=== PATIENT | female | born 2000 | race Caucasian/White ===

== ENCOUNTER 2021-07-09 13:04 | Emergency (ER) | payer OTHER ==
[2021-07-09 13:10] VITALS: BP 125/88
[2021-07-09 14:03] LABS: BILIRUBIN,URINE NEGATIVE (NEGATIVE); GLUCOSE, URINE (UA) NEGATIVE (NEGATIVE); KETONES,URINE (UA) NEGATIVE (NEGATIVE); LEUKOCYTE ESTERASE, URINE NEGATIVE (NEGATIVE); NITRITE,URINE NEGATIVE (NEGATIVE); OCCULT BLOOD,URINE TRACE-INTA (NEGATIVE); PROTEIN,URINE NEGATIVE (NEGATIVE); UROBILINOGEN,URINE 0.2 (NORMAL) E.U./dL (NORMAL)
[2021-07-09 14:05] LABS: CLARITY,URINE CLEAR (CLEAR)
[2021-07-09 14:06] LABS: HCG UR QUAL NEGATIVE
--- NOTE | 2021-07-09 14:26 | ED Physician Documentation ---
PD HPI FEMALE - Stated complaint Stated Complaint: FEMALE - Chief complaint Chief Complaint: UTI - History obtained from History obtained from: Patient - History of Present Illness Timing - onset: Yesterday Timing - duration: Days (1) Timing - details: Abrupt onset, Still present Associated symptoms: Dysuria, Urinary frequency. No: Vaginal discharge, Genital sore/lesion Contributing factors: No: Exposed to STD Similar symptoms before: Diagnosis (similar to UTIs in the past.) Recently seen: Not recently seen Review of Systems Constitutional: denies: Fever, Chills GI: denies: Abdominal Pain, Nausea, Vomiting : reports: Dysuria, Frequency. denies: Discharge, Irregular menses Skin: denies: Rash, Lesions PD PAST MEDICAL HISTORY - Past Medical History Cardiovascular: None Respiratory: None Endocrine/Autoimmune: None - Present Medications Home Medications: Ambulatory Orders Medication Instructions Recorded Confirmed Phenazopyridine HCl [Pyridium] 100 mg PO TID PRN #15 tablet 07/09/21 cephALEXin [Keflex] 500 mg PO TID 5 Days #15 cap 07/09/21 - Allergies Allergies/Adverse Reactions: Allergies Allergy/AdvReac Type Severity Reaction Status Date / Time No Known Drug Allergies Allergy Verified 07/09/21 13:07 PD ED PE NORMAL - Vitals Vital signs reviewed: Yes - General General: Alert and oriented X 3, No acute distress, Well developed/nourished - Female Female : Deferred (will have pt self-obtain vaginal swabs. ) - Back Back: No CVA TTP - Derm Derm: Normal color, Warm and dry Results - Vitals Vitals: Vital Signs - 24 hr 07/09/21 13:07 Temperature 36.5 C Heart Rate 128 H Respiratory 16 Rate Blood Pressure 125/88 H O2 Saturation 98 Oxygen O2 Source Room air - Labs Labs: Laboratory Tests 07/09/21 07/09/21 07/09/21 13:49 14:55 14:55 Urine Color LT. YELLOW Urine Clarity CLEAR Urine pH 6.0 Ur Specific [place] <=1.005 Urine Protein NEGATIVE Urine Glucose (UA) NEGATIVE Urine Ketones NEGATIVE Urine Occult Blood TRACE-INTA Urine Nitrite NEGATIVE Urine Bilirubin NEGATIVE Urine Urobilinogen 0.2 (NORMAL) Ur Leukocyte Esterase NEGATIVE Ur Microscopic Review NOT INDICATED Urine Culture Comments NOT INDICATED Urine HCG, Qual NEGATIVE C. glabrata (PCR) NEGATIVE C. krusei (PCR) NEGATIVE Jeannie species DNA POSITIVE A Chlam trachomat DNA PCR POSITIVE A N.gonorrhoeae DNA (PCR) NEGATIVE T. vaginalis (PCR) NEGATIVE NEGATIVE Bact Vaginosis (PCR) NEGATIVE PD MEDICAL DECISION MAKING - ED course Complexity details: considered differential (symptoms c/w uti. No creams/lotions/etc that might have irritated. Denies vaginal discharge. UA is not very convincing for UTI. Consider vaginitis or interstitial cystitis. ), d/w patient Departure - Departure Disposition: 01 Home, Self Care Clinical Impression: Dysuria Condition: Stable Record reviewed to determine appropriate education?: Yes Instructions: ED Dysuria Uncertain Cause Follow-Up: RAJEEV MATOS ARNP [Primary Care Provider] - Prescriptions: cephALEXin [Keflex] 500 mg PO TID 5 Days #15 cap Phenazopyridine HCl [Pyridium] 100 mg PO TID PRN #15 tablet PRN Reason: Abdominal Pain Comments: Your urine test here today does not show obvious signs of infection. However your symptoms are consistent with bladder infection so we can start treating it that way with cephalexin and phenazopyridine. The vaginal swab tests will result in a day and will call you if there is any signs of vaginitis to account for your symptoms (such as yeast infection or such). Recheck if not improving well over the next few days. Discharge Date/Time: 07/09/21 15:07
[2021-07-09] MEDS ORDERED: PHENAZOPYRIDINE 100 MG TABLET PO STA (14:50)
[2021-07-09] MEDS ORDERED: cephALEXin 250 MG CAPSULE PO STA (14:50)
[2021-07-09 17:04] LABS: BACTERIAL VAGINOSIS DNA NEGATIVE (NEGATIVE); CANDIDA GLABRATA DNA NEGATIVE (NEGATIVE); CANDIDA GROUP DNA POSITIVE (NEGATIVE); CANDIDA KRUSEI DNA NEGATIVE (NEGATIVE); TRICHOMONAS VAGINALIS DNA NEGATIVE (NEGATIVE)
[2021-07-09 22:42] LABS: NEISSERIA GONORRHOEAE DNA NEGATIVE (NEGATIVE); TRICHOMONAS VAGINALIS DNA NEGATIVE (NEGATIVE)
[2021-07-09 22:46] LABS: CHLAMYDIA TRACHOMATIS DNA POSITIVE (NEGATIVE)
== END 2021-07-09 15:07 | disposition home or self-care (01) ==
LOC: ED 13:04
DX: B37.3 Candidiasis of vulva and vagina (principal); A56.02 Chlamydial vulvovaginitis
CPT/HCPCS: 81003; 81025; 87481; 87491; 87591; 87661; 87801; 99283; A9270; 81001; 87086

== ENCOUNTER 2021-09-28 18:25 | Emergency (ER) | payer OTHER ==
[2021-09-28 18:40] VITALS: BP 129/72
[2021-09-28] MEDS ORDERED: IBUPROFEN 600 MG TABLET PO STA (19:02)
--- NOTE | 2021-09-28 19:15 | ED Physician Documentation ---
History of Present Illness - Stated complaint Stated Complaint: BACK PAIN AFTER FALL - Chief complaint Chief Complaint: Trauma Ch/Bk - History obtained from History obtained from: Patient - History of Present Illness Timing: Today Pain level max: 5 Pain level now: 4 - Additonal information Additional information: 21-year-old female states that she tripped and fell down stairs yesterday while carrying a TV. Complains of left hand pain today. Worse with movement, better with rest. Also complains of mild low back pain. Worse with movement, better with rest. No loss of bowel or bladder control. Denies any possibility of . Review of Systems Constitutional: denies: Fever, Chills Respiratory: denies: Cough GI: denies: Nausea, Vomiting : denies: Dysuria, Frequency, Hesitancy, Now EGA Skin: denies: Rash Neurologic: denies: Focal weakness, Numbness, Seizure, Confused, Head injury, LOC PD PAST MEDICAL HISTORY - Past Medical History Cardiovascular: None Respiratory: None Endocrine/Autoimmune: None - Present Medications Home Medications: Ambulatory Orders Medication Instructions Recorded Confirmed Phenazopyridine HCl [Pyridium] 100 mg PO TID PRN #15 tablet 07/09/21 cephALEXin [Keflex] 500 mg PO TID 5 Days #15 cap 07/09/21 - Allergies Allergies/Adverse Reactions: Allergies Allergy/AdvReac Type Severity Reaction Status Date / Time No Known Drug Allergies Allergy Verified 09/28/21 18:40 PD ED PE NORMAL - Vitals Vital signs reviewed: Yes - General General: Alert and oriented X 3, No acute distress, Well developed/nourished - HEENT HEENT: Atraumatic, PERRL, Moist mucous membranes - Neck Neck: Supple, no meningeal sign, No bony TTP - Cardiac Cardiac: RRR, Strong equal pulses - Respiratory Respiratory: No respiratory distress, Clear bilaterally - Abdomen Abdomen: Soft, Non tender, Non distended - Back Back: No spinal TTP, Other (Small abrasion to the mid back. No spinal tenderness. No step-off or deformity.) - Derm Derm: Warm and dry - Extremities Extremities: Other (Normal bilateral lower extremity patellar and ankle jerk reflexes. Normal great toe extension bilaterally. no saddle anesthesia) - Neuro Neuro: Alert and oriented X 3 - Psych Psych: Normal mood, Normal affect - Free text exam Free text exam: Left hand - Bruising to the dorsum of the left hand, over the mid hand. Also has pain with range of motion of the left middle finger. Neurovascular intact. Tenderness to palpation over the dorsum of the hand. No wrist, forearm or elbow tenderness. Results - Vitals Vitals: Vital Signs - 24 hr 09/28/21 18:35 Temperature 37 C Heart Rate 93 Respiratory 16 Rate Blood Pressure 129/72 O2 Saturation 100 Oxygen O2 Source Room air - Rads (name of study) Left hand x-ray Radiology: Final report received, EMP read contemporaneously, See rad report (No acute abnormality) PD MEDICAL DECISION MAKING - ED course Complexity details: reviewed results, re-evaluated patient, considered differential (No cauda equina, no spinal epidural abscess, no fracture, no aortic dissection or evidence of aneursym rupture), d/w patient ED course: No acute findings on x-ray. Patient appears to have a contusion of the hand. Has a abrasion from the carpet on her back. No indication for imaging of the spine. No evidence of cauda equina. No epidural abscess. Patient counseled regarding signs and symptoms for which I believe and urgent re-evaluation would be necessary. Patient with good understanding of and agreement to plan and is comfortable going home at this time This document was made in part using voice recognition software. While efforts are made to proofread this document, sound alike and grammatical errors may occur. Patient is ambulating without difficulty here. Departure - Departure Disposition: 01 Home, Self Care Clinical Impression: Contusion, hand Qualifiers: Encounter type: initial encounter Laterality: left Qualified Code(s): S60.222A - Contusion of left hand, initial encounter Contusion, back Qualifiers: Encounter type: initial encounter Laterality: unspecified laterality Qualified Code(s): S20.229A - Contusion of unspecified back wall of thorax, initial encounter Condition: Good Instructions: ED Contusion Hand, ED Neck Back Pain General Follow-Up: RAJEEV MATOS ARNP [Primary Care Provider] - As Needed Comments: Continue Motrin and Tylenol as needed for pain. Follow-up with your doctor for further care. Your x-rays do not show any acute abnormalities today. Discharge Date/Time: 09/28/21 19:42
--- NOTE | 2021-09-28 19:37 | XRAY Report ---
PROCEDURE: Hand 3 View LT INDICATIONS: fall, hand pain TECHNIQUE: 4 views of the hand acquired. COMPARISON: None. FINDINGS: Bones: No acute fractures or dislocations. No suspicious bony lesions. Soft tissues: No suspicious soft tissue calcifications. IMPRESSION: No acute osseous abnormality. If there is clinical concern or persistent symptoms, additional imaging such as repeat radiographs or advanced imaging (e.g. CT, MRI) may be helpful for further evaluation. Reviewed by: Lang Latham MD on 09/28/2021 7:35 PM PST Approved by: Lang Latham MD on 09/28/2021 7:35 PM PST Station ID: [id number]
== END 2021-09-28 19:42 | disposition home or self-care (01) ==
LOC: ED 18:25
DX: S20.229A Contusion of unspecified back wall of thorax, initial encounter (principal); S60.222A Contusion of left hand, initial encounter; W10.9XXA Fall (on) (from) unspecified stairs and steps, initial encounter; Y93.89 Activity, other specified
CPT/HCPCS: 73130; 99282; 99283; A9270

== ENCOUNTER 2022-01-10 10:12 | Emergency (ER) | payer OTHER ==
[2022-01-10 13:24] VITALS: BP 136/64
--- NOTE | 2022-01-10 13:51 | ED Physician Documentation ---
History of Present Illness - Stated complaint Stated Complaint: RUNNY NOSE/SORE THROAT - Chief complaint Chief Complaint: Heent - History obtained from History obtained from: Patient, Family - History of Present Illness Timing: How many days ago (3-4) Pain level max: 2 Pain level now: 1 - Additonal information Additional information: 21-year-old female with cough, congestion, rhinorrhea and sore throat. Entire family is sick with same. Worse with swallowing, nothing makes it better. Patient is not , breast-feeding or trying to become . No fevers. Has not taken a COVID test. Review of Systems Constitutional: denies: Fever, Chills Nose: reports: Rhinorrhea / runny nose, Congestion Throat: reports: Sore throat Respiratory: reports: Cough GI: denies: Nausea, Vomiting, Diarrhea Musculoskeletal: denies: Neck pain, Back pain Neurologic: denies: Headache PD PAST MEDICAL HISTORY - Past Medical History Cardiovascular: None Respiratory: None Endocrine/Autoimmune: None - Present Medications Home Medications: Ambulatory Orders Medication Instructions Recorded Confirmed Phenazopyridine HCl [Pyridium] 100 mg PO TID PRN #15 tablet 07/09/21 cephALEXin [Keflex] 500 mg PO TID 5 Days #15 cap 07/09/21 Benzonatate [Tessalon] 200 mg PO TID PRN #30 cap 01/10/22 Cetirizine HCl/Pseudoephedrine 1 each PO BID PRN #30 ea 01/10/22 [Zyrtec-D Tablet] - Allergies Allergies/Adverse Reactions: Allergies Allergy/AdvReac Type Severity Reaction Status Date / Time No Known Drug Allergies Allergy Verified 01/10/22 10:17 PD ED PE NORMAL - Vitals Vital signs reviewed: Yes - General General: Alert and oriented X 3, No acute distress, Well developed/nourished - HEENT HEENT: PERRL, Ears normal, Moist mucous membranes, Pharynx benign - Neck Neck: Supple, no meningeal sign - Cardiac Cardiac: RRR, Strong equal pulses - Respiratory Respiratory: No respiratory distress, Clear bilaterally - Abdomen Abdomen: Soft, Non tender, Non distended - Derm Derm: Warm and dry, No rash - Neuro Neuro: Alert and oriented X 3 - Psych Psych: Normal mood, Normal affect Results - Vitals Vitals: Vital Signs - 24 hr 01/10/22 01/10/22 10:16 13:23 Temperature 36.7 C 36.6 C Heart Rate 85 74 Respiratory 16 15 Rate Blood Pressure 114/67 136/64 H O2 Saturation 100 100 Oxygen O2 Source Room air - Labs Labs: Laboratory Tests 01/10/22 13:23 Group A Strep Rapid Negative PD MEDICAL DECISION MAKING - ED course Complexity details: reviewed results, re-evaluated patient, considered differential, d/w patient, d/w family ED course: Patient is well-appearing, nontoxic. Afebrile. Negative rapid strep. COVID testing sent. Patient is well-hydrated. Tolerating p.o. without difficulty. Lungs are clear to auscultation bilaterally. We will continue supportive care and have her follow-up with her doctor for further care. Patient counseled regarding signs and symptoms for which I believe and urgent re-evaluation would be necessary. Patient with good understanding of and agreement to plan and is comfortable going home at this time This document was made in part using voice recognition software. While efforts are made to proofread this document, sound alike and grammatical errors may occur. Departure - Departure Disposition: 01 Home, Self Care Clinical Impression: Viral URI Condition: Good Instructions: ED Viral Syndrome Follow-Up: Your,doctor in 1 week [Other] Prescriptions: Benzonatate [Tessalon] 200 mg PO TID PRN #30 cap PRN Reason: Cough Cetirizine HCl/Pseudoephedrine [Zyrtec-D Tablet] 1 each PO BID PRN #30 ea PRN Reason: nasal congestion Comments: Drink plenty fluids and rest. Return if you worsen. Your prescriptions were sent to [facility] in [place]. You have a COVID test pending and can check the results on the patient portal on the [facility] website. Isolation precautions for COVID Day 0 is your first day of symptoms or a positive viral test. Day 1 is the first full day after your symptoms developed or your test specimen was collected. If you have COVID-19 or have symptoms, isolate for at least 5 days. IF YOU: Tested positive for COVID-19 or have symptoms, regardless of vaccination status Stay home for at least 5 days Stay home for 5 days and isolate from others in your home. Wear a well-fitting mask if you must be around others in your home. Do not travel. Ending isolation if you had symptoms End isolation after 5 full days if you are fever-free for 24 hours (without the use of fever-reducing medication) and your symptoms are improving. Ending isolation if you did NOT have symptoms End isolation after at least 5 full days after your positive test. If you got very sick from COVID-19 or have a weakened immune system You should isolate for at least 10 days. Consult your doctor before ending isolation. Take precautions until day 10 Wear a well-fitting mask Wear a well-fitting mask for 10 full days any time you are around others inside your home or in public. Do not go to places where you are unable to wear a mask. Do not travel Do not travel until a full 10 days after your symptoms started or the date your positive test was taken if you had no symptoms. Avoid being around people who are more likely to get very sick from COVID-19. Discharge Date/Time: 01/10/22 14:20
[2022-01-10 13:52] LABS: RAPID STREP SCREEN Negative (Negative)
--- NOTE | 2022-01-11 19:00 | ED Physician Documentation ---
ED Addendum - Addendum Addendum: 01/11/22 18:59 Culture came back positive for group F strep. Will place on penicillin. We will have her follow-up with her doctor for further care. Departure - Departure Disposition: 01 Home, Self Care Clinical Impression: Viral URI Condition: Good Instructions: ED Viral Syndrome Follow-Up: Your,doctor in 1 week [Other] Prescriptions: Penicillin V Potassium 500 mg PO Q6HR #40 tablet Benzonatate [Tessalon] 200 mg PO TID PRN #30 cap PRN Reason: Cough Cetirizine HCl/Pseudoephedrine [Zyrtec-D Tablet] 1 each PO BID PRN #30 ea PRN Reason: nasal congestion Comments: Drink plenty fluids and rest. Return if you worsen. Your prescriptions were sent to [facility] in [place]. You have a COVID test pending and can check the results on the patient portal on the [employer] website. Isolation precautions for COVID Day 0 is your first day of symptoms or a positive viral test. Day 1 is the first full day after your symptoms developed or your test specimen was collected. If you have COVID-19 or have symptoms, isolate for at least 5 days. IF YOU: Tested positive for COVID-19 or have symptoms, regardless of vaccination status Stay home for at least 5 days Stay home for 5 days and isolate from others in your home. Wear a well-fitting mask if you must be around others in your home. Do not travel. Ending isolation if you had symptoms End isolation after 5 full days if you are fever-free for 24 hours (without the use of fever-reducing medication) and your symptoms are improving. Ending isolation if you did NOT have symptoms End isolation after at least 5 full days after your positive test. If you got very sick from COVID-19 or have a weakened immune system You should isolate for at least 10 days. Consult your doctor before ending isolation. Take precautions until day 10 Wear a well-fitting mask Wear a well-fitting mask for 10 full days any time you are around others inside your home or in public. Do not go to places where you are unable to wear a mask. Do not travel Do not travel until a full 10 days after your symptoms started or the date your positive test was taken if you had no symptoms. Avoid being around people who are more likely to get very sick from COVID-19. Discharge Date/Time: 01/10/22 14:20
== END 2022-01-10 14:20 | disposition home or self-care (01) ==
LOC: ED 10:12
DX: J06.9 Acute upper respiratory infection, unspecified (principal); Z20.822 Contact with and (suspected) exposure to COVID-19
CPT/HCPCS: 87070; 87077; 87430; 99283; 99284

== ENCOUNTER 2022-02-19 12:00 | Emergency (ER) | payer OTHER ==
[2022-02-19 12:11] VITALS: BP 108/67
--- NOTE | 2022-02-19 12:35 | ED Physician Documentation ---
History of Present Illness - Stated complaint Stated Complaint: COUGH - Chief complaint Chief Complaint: Resp - Additonal information Additional information: 21-year-old female presents emergency department with her for evaluation of cough and congestion that began about 2 to 3 days ago. No fevers. She is not vaccinated for COVID-19 but tested negative via rapid test 48 hours ago. No vomiting or diarrhea. Does not carry history of hypertension, diabetes immune compromise. No tobacco history. She presents with her who lost his sense of taste and smell this morning and is also developed cough Review of Systems Constitutional: denies: Fever, Chills Eyes: reports: Reviewed and negative Nose: reports: Rhinorrhea / runny nose Throat: reports: Reviewed and negative Cardiac: reports: Reviewed and negative Respiratory: reports: Cough. denies: Dyspnea, Hemoptysis, Wheezing GI: reports: Reviewed and negative : reports: Reviewed and negative Skin: reports: Reviewed and negative Musculoskeletal: reports: Reviewed and negative PD PAST MEDICAL HISTORY - Past Medical History Past Medical History: No Cardiovascular: None Respiratory: None Endocrine/Autoimmune: None GI: None TILE SORTER: None : None - Past Surgical History Past Surgical History: No - Present Medications Home Medications: Ambulatory Orders Medication Instructions Recorded Confirmed No Known Home Medications 02/19/22 02/19/22 - Allergies Allergies/Adverse Reactions: Allergies Allergy/AdvReac Type Severity Reaction Status Date / Time No Known Drug Allergies Allergy Verified 02/19/22 12:10 - Social History Does the pt smoke?: No Smoking Status: Never smoker PD ED PE NORMAL - General General: Alert and oriented X 3, No acute distress, Well developed/nourished - HEENT HEENT: Atraumatic, Moist mucous membranes, Pharynx benign - Neck Neck: Supple, no meningeal sign, No adenopathy - Cardiac Cardiac: RRR, No murmur - Respiratory Respiratory: No respiratory distress, Clear bilaterally - Abdomen Abdomen: Normal bowel sounds, Soft, Non tender, Non distended - Back Back: No CVA TTP, No spinal TTP - Derm Derm: Warm and dry - Extremities Extremities: No deformity, No tenderness to palpate, Normal ROM s pain - Neuro Neuro: Alert and oriented X 3, legal executive 2-12 intact Eye Opening: Spontaneous Motor: Obeys Commands Verbal: Oriented GCS Score: 15 Results - Vitals Vitals: Vital Signs - 24 hr 02/19/22 12:07 Temperature 36.7 C Heart Rate 104 H Respiratory 16 Rate Blood Pressure 108/67 O2 Saturation 100 Oxygen O2 Source Room air PD MEDICAL DECISION MAKING - ED course Complexity details: considered differential, d/w patient ED course: Well-appearing 21-year-old female presents emergency department for evaluation of cough and congestion that began about 3 days ago. No fevers. is sick with similar symptoms that began this morning and include loss of taste and smell. She reports that she tested negative for COVID 2 days ago. On exam she has no hypoxia or respiratory distress. Cardiopulmonary auscultation was unremarkable. Vital signs without worrisome findings. COVID-19 test is pending however I suspect she likely has COVID or a similar viral URI. Routine care and emergent return precautions otherwise discussed Departure - Departure Disposition: 01 Home, Self Care Clinical Impression: URI with cough and congestion Condition: Stable Record reviewed to determine appropriate education?: Yes Instructions: ED Viral Syndrome Comments: Princess we are testing you for COVID-19. However you do have very mild symptoms. I do recommend that you maintain quarantine until these test results are known. Drink plenty of water and get lots of rest. You can take Tylenol and ibuprofen [id number] for discomfort. Return to the emergency department for any worsening symptoms, difficulty breathing or chest pain
== END 2022-02-19 12:51 | disposition home or self-care (01) ==
LOC: ED 12:00
DX: J06.9 Acute upper respiratory infection, unspecified (principal); Z20.822 Contact with and (suspected) exposure to COVID-19
CPT/HCPCS: 99283